=== PATIENT | female | born 1970 | race Caucasian/White ===

== ENCOUNTER 2016-04-16 14:07 | Inpatient (IN) | payer BC ==
--- NOTE | 2016-04-16 14:35 | EDPHY ---
H & P Stated Complaint: sent from [facility] pericardial effusion Time Seen by Provider: 04/16/16 14:11 HPI/ROS: CHIEF COMPLAINT: Pericardial effusion HISTORY OF PRESENT ILLNESS: The patient presents to the emergency department from the [facility] office after she was diagnosed with a fairly significant recurrent pericardial effusion. The patient does have a history of a prior pericardial effusion requiring pericardiocentesis several years ago. The patient reportedly has been having a variety of neurologic symptoms over the past several months. The symptoms includes thirst speech, falling, paresthesias. The patient reports intermittent swelling of her face and mouth. The patient reportedly has been under the care of a number of providers for evaluation of the symptoms. She is having some hot and cold sensitivities. The patient does have a history of prior thyroidectomy. The patient has reportedly been off of her levothyroxine for past 4-5 months. She reportedly had an abdominal ultrasound within the past month a which demonstrated only a mild effusion by her report. The patient does report moderate dyspnea on exertion. By report to me from Dr. Abreu, she did have evidence of pre tamponade physiology noted on her echocardiogram today. REVIEW OF SYSTEMS: A comprehensive 10 point review of systems is otherwise negative aside from elements mentioned in the history of present illness. Source: Patient Exam Limitations: No limitations - Personal History LMP (Females 10-55): Unknown Current Tetanus/Diphtheria Vaccine: Unsure Current Tetanus Diphtheria and Acellular Pertussis (TDAP): Unsure Tetanus Vaccine Date: < 10 years - Medical/Surgical History Hx Asthma: No Hx Chronic Respiratory Disease: No Hx Diabetes: No Hx Cardiac Disease: Yes Hx Renal Disease: No Hx Cirrhosis: No Hx Alcoholism: No Hx HIV/AIDS: No Hx Splenectomy or Spleen Trauma: No Other PMH: pt asks to plz see [facility] records - Social History Smoking Status: Never smoked - Physical Exam Exam: General Appearance: Alert, no distress Eyes: Pupils equal and round no pallor or injection ENT, Mouth: Mucous membranes moist Respiratory: There are no retractions, lungs are clear to auscultation Cardiovascular: Regular rate and rhythm Gastrointestinal: Abdomen is soft and nontender, no masses, bowel sounds normal Neurological: A&O, normal motor function, normal sensory exam, normal cranial nerves Skin: Warm and dry, no rashes Musculoskeletal: Neck is supple nontender Extremities: symmetrical, full range of motion Constitutional: Initial Vital Signs Temperature (C) 36.6 C 04/16/16 14:19 Heart Rate 64 04/16/16 14:19 Respiratory Rate 16 04/16/16 14:19 Blood Pressure 156/105 H 04/16/16 14:19 O2 Sat (%) 95 04/16/16 14:19 O2 Delivery Mode Room Air Allergies/Adverse Reactions: gentamicin [Gentamicin] Allergy (Intermediate, Verified 07/24/12 10:34) Rash kanamycin [Kanamycin] Allergy (Intermediate, Verified 07/24/12 10:34) tobramycin Allergy (Intermediate, Verified 07/24/12 10:34) petrolatum,white [From Petroleum Jelly] Allergy (Verified 07/24/12 10:34) bandaids Allergy (Uncoded 07/24/12 10:34) Rash Home Medications: Medication Instructions Recorded Cyanocobalamin [Vitamin B12 5,000 mcg IM TUTH 07/09/12 1000MCG/ML (RX)] Herbals/Supplements -Info Only 1 each PO AD 07/09/12 Progesterone Sr(Compounded) 150 mg PO HS 07/09/12 Thyroid,Pork [[place] Thyroid] 90 mg PO DAILY 07/09/12 Ubidecarenone [Coenzyme Q10] 100 mg PO BID 07/09/12 Cholecalciferol Vit D3 [Vitamin D3 5,000 units PO DAILY 07/24/12 1000 units (OTC)] Pharmacy Completed 07/24/12 07/24/12 Medical Decision Making - Diagnostics EKG Interpretation: EKG: Complete interpretation has been separately recorded in the [employer] archive. Summary impression: Sinus rhythm, low voltage Procedures: Procedure: Limited transthoracic echocardiogram. A limited transthoracic echocardiogram was performed and interpreted by myself for pericardial effusion. Ultrasound imaging demonstrates a large pericardial effusion with evidence of right ventricular collapse. Normal cardiac activity. Impression large pericardial effusion with ultrasonic evidence of tamponade. ED Course/Re-evaluation: The patient presents to the ED with a large pericardial effusion, electrocardiographic and echocardiographic evidence of tamponade. The patient has no clinical evidence of tamponade with normal heart rate and blood pressure noted in the ED. I do not appreciate significant JVD. The patient was placed on a monitoring and evaluation advisor. Her case was reviewed with Dr. Nathaniel Arnold from Cardiology who is making arrangements to take the patient to the union laborer shortly. Consultation was made with Dr. Sharla Chris from the hospitalist service. The patient is taken from the ER to the cardiac catheterization lab at 3:45 p.m. for pericardiocentesis Differential Diagnosis: Differential diagnosis considered includes pericardial effusion, pericardial tamponade, critical anemia, connective tissue disorder, myocardial infarction - Data Points Laboratory Results: Laboratory Results 04/16/16 14:25 04/16/16 14:25 04/16/16 04/16/16 04/16/16 14:25 14:25 14:25 WBC 3.87 10^3/uL 10^3/uL (3.80-9.50) RBC 3.91 10^6/uL L 10^6/uL (4.18-5.33) Hgb 12.5 g/dL L g/dL (12.6-16.3) Hct 37.6 % L % (38.0-47.0) MCV 96.2 fL fL (81.5-99.8) MCH 32.0 pg pg (27.9-34.1) MCHC 33.2 g/dL g/dL (32.4-36.7) RDW 14.1 % % (11.5-15.2) Plt Count 188 10^3/uL 10^3/uL (150-400) MPV 10.3 fL fL (8.7-11.7) Neut % (Auto) 63.2 % % (39.3-74.2) Lymph % (Auto) 29.7 % % (15.0-45.0) Mitchell % (Auto) 5.2 % % (4.5-13.0) Eos % (Auto) 0.8 % % (0.6-7.6) Baso % (Auto) 0.8 % % (0.3-1.7) Nucleat RBC Rel Count 0.0 % % (0.0-0.2) Absolute Neuts (auto) 2.45 10^3/uL 10^3/uL (1.70-6.50) Absolute Lymphs (auto) 1.15 10^3/uL 10^3/uL (1.00-3.00) Absolute Monos (auto) 0.20 10^3/uL L 10^3/uL (0.30-0.80) Absolute Eos (auto) 0.03 10^3/uL 10^3/uL (0.03-0.40) Absolute Basos (auto) 0.03 10^3/uL 10^3/uL (0.02-0.10) Absolute Nucleated RBC 0.00 10^3/uL 10^3/uL (0-0.01) Immature Gran % 0.3 % % (0.0-1.1) Immature Gran # 0.01 10^3/uL 10^3/uL (0.00-0.10) PT 15.1 SEC H SEC (12.0-15.0) INR 1.19 H (0.83-1.16) APTT 36.5 SEC SEC (23.0-38.0) Sodium 139 mEq/L mEq/L (134-144) Potassium 3.6 mEq/L mEq/L (3.5-5.2) Chloride 101 mEq/L mEq/L (97-110) Carbon Dioxide 28 mEq/l mEq/l (22-31) Anion Gap 10 mEq/L mEq/L (8-16) BUN 16 mg/dL mg/dL (7-23) Creatinine 1.2 mg/dL H mg/dL (0.6-1.0) Estimated GFR 48 Glucose 78 mg/dL mg/dL (70-100) Calcium 9.5 mg/dL mg/dL (8.5-10.4) Departure - Departure Disposition: [facility] Acute Clinical Impression: Pericardial effusion, Cardiac tamponade Condition: Fair
[2016-04-16 14:37] LABS: % IMMATURE GRANULYOCYTES 0.3 % (0.0-1.1); ABSOLUTE IMMATURE GRANULOCYTES 0.01 10^3/uL (0.00-0.10); ADD DIFF? NO; ADD MORPH? NO; ADD SCAN? NO; ATYPICAL LYMPHOCYTE FLAG 10 (0-99); FRAGMENT RBC FLAG 0 (0-99); HEMATOCRIT 37.6 % (38.0-47.0); HEMOGLOBIN 12.5 g/dL (12.6-16.3); LEFT SHIFT FLG 0 (0-99); LIPEMIA HEMOLYSIS FLAG 80 (0-99); MEAN CELL HEMOGLOBIN CONCENTR. 33.2 g/dL (32.4-36.7); MEAN CELL VOLUME 96.2 fL (81.5-99.8); MEAN PLATELET VOLUME 10.3 fL (8.7-11.7); PLATELET CLUMPS FLAG 0 (0-99); PLATELET COUNT 188 10^3/uL (150-400); RED BLOOD CELL COUNT 3.91 10^6/uL (4.18-5.33); RED CELL DISTRIBUTION WIDTH 14.1 % (11.5-15.2)
--- NOTE | 2016-04-16 14:38 | CPEKG ---
Heart Rate: 68 RR Interval: 882 QRSD Interval: 88 QT Interval: 360 QTC Interval: 383 QRS [place]: 30 T Wave [place]: 79 EKG Severity - ABNORMAL ECG - EKG Impression: SINUS RHYTHM EKG Impression: LOW VOLTAGE THROUGHOUT Electronically Signed By: Brian Dimas 16-Apr-2016 16:30:44
[2016-04-16 14:45] LABS: APTT 36.5 SEC (23.0-38.0); INR 1.19 (0.83-1.16); PROTIME(PATIENT) 15.1 SEC (12.0-15.0)
[2016-04-16 14:49] LABS: ANION GAP 10 mEq/L (8-16); CALCIUM 9.5 mg/dL (8.5-10.4); CARBON DIOXIDE 28 mEq/l (22-31); CHLORIDE 101 mEq/L (97-110); CREATININE 1.2 mg/dL (0.6-1.0); GLOMERULAR FILTRATION RATE 48; GLUCOSE 78 mg/dL (70-100); POTASSIUM 3.6 mEq/L (3.5-5.2); SODIUM 139 mEq/L (134-144)
[2016-04-16] MEDS ORDERED: ONDANSETRON DISINTEGRATING 4 MG TAB PO PRN (15:12)
[2016-04-16] MEDS ORDERED: ONDANSETRON 4 MG/2 ML VIAL IVP PRN (15:12)
[2016-04-16] MEDS ORDERED: ACETAMINOPHEN 325 MG TAB PO PRN (15:12)
[2016-04-16] MEDS ORDERED: fentaNYL 100 MCG/2 ML INJ ONE ×2 (15:23→16:05)
[2016-04-16] MEDS ORDERED: MIDAZOLAM 2 MG/2 ML VIAL ONE ×2 (15:23→16:05)
[2016-04-16] MEDS ORDERED: LIDOCAINE 1% 30 ML SDV ONE (15:23)
[2016-04-16] MEDS ORDERED: ETOMIDATE 40 MG/20 ML INJ ONE (16:17)
--- NOTE | 2016-04-16 16:44 | PDCTREPORT ---
Cardiothoracic Procedure Rpt Cardiothoracic Procedure Report: PROCEDURE: Pericardiocentesis DATE OF PROCEDURE: 04/16/2016 COMPLICATIONS: None. FIELD MANAGER: Nathaniel Arnold MD INDICATION AND APPROPRIATE USE CRITERIA: Marianne Jiménez has a recurrent pericardial effusion with pre tamponade physiology on echocardiogram performed earlier today. PROCEDURE IN DETAIL: After informed consent was obtained and n.p.o. status was confirmed, the region of the subxiphoid area was cleaned, prepped and draped in a sterile fashion. Ultrasound and fluoroscopic guidance was used to determine the most appropriate angle for the pericardiocentesis needle as well as depth of the pericardial effusion in that plane. Approximately 20 mL of 1% lidocaine was utilized for local anesthesia. Pericardiocentesis needle was then advanced under direct fluoroscopic guidance. Agitated saline was used to inject demonstrating access of the pericardial space. A J wire was then advanced under fluoroscopic guidance into the pericardial sac. The dilator was advanced over the wire after the needle was removed and exchanged for a pericardiocentesis drain. Through the catheter we were able to aspirate ~550 mL of straw-colored fluid, which will be sent to the laboratory for analysis. We were able to see under echocardiographic guidance that we did tap the pericardial space to dry with the use of that pericardial drain. The catheter was sutured into place with 0 silk and sterile dressing applied. A Andrea-Torres drain was attached to the end of the pericardiocentesis catheter and the catheter will remain in place overnight. The patient returned to the catheterization laboratory floor in good and stable condition. A limited echocardiogram will be performed in the morning to prove that we have no reaccumulation of fluid or blood in the pericardial space. FINAL IMPRESSION: Successful urgent pericardiocentesis without immediate complication. Patient Problems: Problems Problem Status Onset Cardiac tamponade Acute Pericardial effusion Acute Thyroid nodule Active
--- NOTE | 2016-04-16 17:23 | GHP ---
DATE OF ADMISSION: 04/16/2016 CHIEF COMPLAINT: Pericardial effusion. HISTORY OF PRESENT ILLNESS: The patient is a 46-year-old female with history of pericardial effusion in 2013 requiring pericardiocentesis and multiple other medical conditions including anemia, celiac disease, hyperlipidemia, Filiberto' s thyroiditis, Raynaud's. The patient presented to cardiology clinic today with complaints of increased shortness of breath. This has been progressive over the last couple of months. This usually occurs with activity especially if she was to run quickly to her car. She has much difficulty now with climbing stairs. She denies any chest pain. She denies dizziness, lightheadedness. No palpitations. No lower extremity edema. She endorses slurred speech intermittently for the past few months, which is associated with intermittent facial swelling. She states that she is being evaluated by her primary physician. She also reports 4 falls since [place]. The first was likely related to slipping on ice. The other one she says she just buckled. She denies prodromal symptoms but cannot be certain that she did not feel short of breath prior to. She denies fevers, chills, or sweats. No cough. No joint swelling or pain. No abdominal pain. No nausea, vomiting, diarrhea. No dysuria. Per review of [facility]'s records, echocardiogram dated today showed moderate to large pericardial effusion with evidence of pre tamponade physiology. The effusion is concentric. REVIEW OF SYSTEMS: I completed a 10-point review of systems. PAST MEDICAL HISTORY: I have reviewed her medical history in [place], as well as [facility]. 1. Idiopathic pericardial effusion in October 2012 status post pericardiocentesis in 2013. 2. Raynaud's. 3. Celiac disease. 4. Hyperlipidemia. 5. IBS. 6. Constipation. 7. Osteoporosis. 8. Papillary thyroid cancer. 9. Lyme Western Blot positive. 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 Hypothyroidism 12. MTHFR clotting disorder PAST SURGICAL HISTORY: 1. Pericardiocentesis. 2. Appendectomy. 3. Thyroidectomy in 2012. 4. Tonsillectomy in 2012. FAMILY HISTORY: Mother with osteoporosis, hypertension. Father with multiple heart issues. 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 No alcohol, tobacco, or illicit's. HOME MEDICATIONS: 1. Cytomel 5mg BID 2. Levothyroxine 75mcg ALLERGIES: 1. Gentamicin. 2. Kanamycin. 3. Tobramycin. 4. Petroleum white jelly. 5. Band-Aids. PHYSICAL EXAMINATION: VITAL SIGNS: Temperature 37.1, blood pressure 129/82, heart rate 60s, respirations 14, 99% on room air. GENERAL: HEENT: PERRLA. EOMI. Oropharynx clear. CV: Regular mildly distant heart sounds. Mild JVD elevation. LUNGS: Clear to auscultation bilaterally. ABDOMEN: Soft, nontender, nondistended. Positive bowel sounds. : No Saavedra. No suprapubic tenderness. MUSCULOSKELETAL: 5/5 upper lower extremity strength. No joint synovitis or swelling. SKIN: Warm, dry. NEURO: 2 through 12 intact. PSYCH: Alert and oriented x3. LABORATORY DATA: WBC is 3, hemoglobin 12, hematocrit 37, platelets 188, INR is 1.1, PT is 15, PTT is 35. Sodium 139, potassium 3.6, chloride 101, carbon dioxide 28, BUN 16, creatinine is 1.2, baseline 1. EKG personally reviewed by me. Normal sinus rhythm. Low voltage throughout. ASSESSMENT AND PLAN: 1. Recurrent idiopathic pleural effusion: patient has been symptomatic for several months. She was evaluated at [facility] today with an echocardiogram demonstrating moderate to large effusion with pre tamponade physiology. Patient will be taken to [facility] by Dr. Arnold to undergo pericardiocentesis. She will be observed in the PCU post procedure. Very significant hypothyroidism: TSH 127, Free T4 0.07, T3 1.57 (01/31), which may be contributing. Repeating these studies. May need to consult Endocrinology. 2. Celiac disease, stable. 3. Hyperlipidemia, not on medications. 4. Irritable bowel syndrome. Continue home medications. 5. Osteoporosis. Continue vitamin D supplementation. 6. History of papillary thyroid cancer status post thyroidectomy. Cont LT4, Cytomel. LT4. Repeat TSH, T3/T4. 7. Mild acute kidney injury. This might be secondary to tamponade. Physiology will hydrate gently after procedure. 8. Diet n.p.o. now regular after procedure. 9. Deep venous thrombosis prophylaxis. SCDs given procedure. DISPOSITION: The patient warrants observation and admission in the PCU after pericardiocentesis. /[id number]/MODL MTDD
--- NOTE | 2016-04-16 17:58 | GHP ---
DATE OF ADMISSION: 04/16/2016 HISTORY OF PRESENT ILLNESS: The patient is a 46-year-old lady with a significant past medical histo ry. She actually has a history of a prior thyroid cancer, status post thyroidectomy under the care of the ENT surgeon, Dr. Glass. She presented to our office after an evaluation by her PLATE MAKER ZINC, Oscar Gross, who identified a pericardial effusion of her heart on a routine ultrasound that was bein g performed for DIET TECHNICIAN REGISTERED symptoms. She was seen by Dr. Leonel Abreu, my partner, on April 04, and a full workup, including a nuclear stress test and echocardiogram were ordered. Today, the echo was completed, and the patient was found to have pre-tamponade physiology, with a very large pericardial effusion. I was asked to see the patient for pericardiocentesis. At the time of my evaluation, the patient complains of symptoms of intermittent slurred speech. It occurs approximately once a week and can last from an hour to all day. It often disappears on its o wn. It sounds as if she is drunk, but she certainly has not been drinking alcohol. Her voice seems to change during these times, and she has also noticed swelling and distortion of her face. Her li ps and mouth can actually be swollen. She has noticed more of the symptoms on the right side, and o ther people have seen this swelling and commented on it. Her lip and mouth swelling are more notice able, per the patient; however, her boyfriend and son have noticed and can tell that something is wr rome with the swelling, which started around the holidays. She has cold intolerance and is cold 24 h ours a day, essentially all the time. Everyone else around her can be very hot or warm, but she sti ll complains of feeling cold. She has not had fever, chills, nausea, or vomiting. She does not hav e a history of hypertension, diabetes, smoking, gout, or obesity. She does have an elevated cholest ling level. FAMILY HISTORY: Pertinent for a history of premature coronary disease. PAST MEDICAL HISTORY: Significant for anemia, arthritis, celiac disease, cytomegalovirus, EBV infec tion, Filiberto's thyroiditis, thyroid neoplasm, hypothyroidism, irritable bowel syndrome, irregular menses, Lyme disease, MTHFR clotting disorder. The thyroid cancer was characterized as a papillary thyroid cancer. She has also had a prior pericardial effusion requiring pericardiocentesis. PAST SURGICAL HISTORY: Significant for appendectomy in 2004, breast biopsy of the right breast in 2 016, pericardiocentesis in 2012, tonsillectomy as a child, and thyroidectomy. CURRENT MEDICATIONS: Include boric acid, calcium, Cytomel, DHEA 5 mg, fludrocortisone 0.1 mg once d aily, levothyroxine 112 mcg daily, probiotic, and milk thistle. ALLERGIES: She is not known to be allergic to any medications but does have an allergy to adhesive tape. HABITS: She has never smoked. Does not drink alcohol or use illicit drugs. REVIEW OF SYSTEMS: Ten-point review of systems is negative, except as otherwise outlined in the HPI . PHYSICAL EXAMINATION: GENERAL: She is frail and pale, and a small lady. VITAL SIGNS: Blood press ure of 115/70. Pulse is 70, regular. Respirations 16, unlabored. Oxygen saturation 96%. NECK: No JVD or carotid bruit. HEART: Normal S1 and S2, with distant heart sounds. LUNGS: Clear. Somewh at unusual for a patient with her slender body habitus. ABDOMEN: Benign. EXTREMITIES: Warm, dry, and well perfused, without significant peripheral edema. Echocardiographic images reveal a large pericardial effusion with pre-tamponade physiology. IMPRESSION/PLAN: Recurrent pericardial effusion in a patient with prior thyroid cancer, now with ev idence of pre-tamponade physiology as evidenced by the mitral inflow pattern and RV diastolic collap se. The patient would benefit from an urgent pericardiocentesis to potentially help with her episod es of near fainting, as well as her breathing difficulties and fatigue. I suspect that some of her low blood pressures may be related to her hypothyroidism. The second issue is that the patient is s ignificantly hypothyroid on her current medical regimen of 112 mcg, which may in part be responsible for her pericardial effusion and, in essence, myxedema. It may be prudent for us to get the endocr inologists involved and to consider intravenous thyroid to help improve her hypothyroid state. Copy requested to: Primary Care Physician /[id number]/MODL
[2016-04-16] MEDS: HYDROCODONE/APAP 5/325 TAB PO PRN (23:20)
[2016-04-17] MEDS: HYDROCODONE/APAP 5/325 TAB PO PRN ×2 (03:51→19:35)
[2016-04-17 04:23] LABS: HEMATOCRIT 39.8 % (38.0-47.0); HEMOGLOBIN 13.2 g/dL (12.6-16.3); MEAN CELL HEMOGLOBIN 32.4 pg (27.9-34.1); MEAN CELL HEMOGLOBIN CONCENTR. 33.2 g/dL (32.4-36.7); MEAN CELL VOLUME 97.8 fL (81.5-99.8); RED BLOOD CELL COUNT 4.07 10^6/uL (4.18-5.33); RED CELL DISTRIBUTION WIDTH 13.8 % (11.5-15.2)
[2016-04-17 04:34] LABS: ANION GAP 10 mEq/L (8-16); CALCIUM 8.6 mg/dL (8.5-10.4); CARBON DIOXIDE 24 mEq/l (22-31); CHLORIDE 102 mEq/L (97-110); CREATININE 1.2 mg/dL (0.6-1.0); GLOMERULAR FILTRATION RATE 48; GLUCOSE 90 mg/dL (70-100); POTASSIUM 3.5 mEq/L (3.5-5.2); SODIUM 136 mEq/L (134-144)
[2016-04-17] MEDS ORDERED: LEVOTHYROXINE 75 MCG TAB PO SCH (06:00)
[2016-04-17] MEDS: LEVOTHYROXINE 75 MCG TAB PO SCH (06:41)
[2016-04-17] MEDS: LIOTHYRONINE SODIUM 5 MCG TAB PO SCH ×2 (08:45→22:03)
[2016-04-17] MEDS ORDERED: LEVOTHYROXINE SODIUM 100 MCG PO SCH (09:00)
--- NOTE | 2016-04-17 09:27 | CPEKG ---
Heart Rate: 60 RR Interval: 1000 QRSD Interval: 88 QT Interval: 400 QTC Interval: 400 QRS [place]: 76 T Wave [place]: 113 EKG Severity - ABNORMAL ECG - EKG Impression: ACCELERATED JUNCTIONAL ESCAPE RHYTHM EKG Impression: BORDERLINE R WAVE PROGRESSION, ANTERIOR LEADS EKG Impression: NONSPECIFIC T ABNORMALITIES, ANT-LAT LEADS Electronically Signed By: Brian Dimas 17-Apr-2016 22:28:45
--- NOTE | 2016-04-17 11:39 | HOSPPROG ---
Hospitalist Progress Note Assessment/Plan: 46 y/o female new to my care presenting with #recurring idiopathic pericardial effusion s/p drainage #reported dysequilibrium/slurred speech/falls #untreated hypothyroidism in the setting of prior thyroidectomy (pt has been off thyroid replacement for sometime) #H/O hyperlipidemia #Celiac disease #IBS #TANIA #MTHFR clotting disorder plan -cont post procedure care per cards with pericardial fluid analysis -MRI brain to further eval her neuro symptoms and eval for CVA given her known clotting disorder -continue thyroid replacement Subjective: improved sob. denies new numbness or weakness Objective: Vital Signs Temp Pulse Resp BP Pulse Ox 36.4 C 65 20 104/81 H 96 04/17/16 08:42 04/17/16 08:42 04/17/16 08:42 04/17/16 08:42 04/17/16 08:42 Microbiology 04/16/16 16:46 Gram Stain - Final Pericardial Fluid - Aspirate Laboratory Results 04/17/16 03:48 04/17/16 03:48 04/16/16 04/17/16 04/18/16 05:59 05:59 05:59 Intake Total 400 Output Total 1965 Balance -1565 PT 15.1 SEC (12.0-15.0) H 04/16/16 14:25 INR 1.19 (0.83-1.16) H 04/16/16 14:25 - Physical Exam Constitutional: no apparent distress, appears nourished, not in pain Ears, Nose, Mouth, Throat: moist mucous membranes, hearing normal, ears appear normal, no oral mucosal ulcers Cardiovascular: regular rate and rhythym, No JVD, No tachycardia, No edema Respiratory: no respiratory distress, no rales or rhonchi, clear to auscultation , No inspiratory crackles Gastrointestinal: normoactive bowel sounds, soft, non-tender abdomen, no palpable masses, No guarding, No rebound Genitourinary: no bladder fullness, no bladder tenderness, no renal bruits Neurologic: AAOx3, sensation intact bilaterally ICD10 Worksheet Patient Problems: Problems Problem Status Onset Thyroid nodule Active Pericardial effusion Acute Cardiac tamponade Acute
--- NOTE | 2016-04-17 13:52 | PDCARPN ---
Cardiology Progress Note Chief Complaint: Lip/face swelling, difficulty speaking Assessment/Plan: Assessment/Plan: 1. Recurrent pericardial effusion s/p pericardiocentesis yesterday with 550 mL straw-colored fluid. Will plan on removing catheter tomorrow to aspirate remaining fluid. Her first pericardial effusion occurred in 2012. Both of these appear to be temporally related to severe hypothyroidism (TSH as high as 119 in the months prior to her first effusion -- it was measured at 142 yesterday). She has not been taking Synthroid the past few months). I am concerned her recurrent pericardial effusion is related severe hyperthyroidism. 2. Slurred, difficult speech. We are evaluating with an MRI of her brain given her clotting disorder. I believe this also may be related to her severe hypothyroidism. 3. Untreated hypothyroidism in the setting of prior thyroidectomy (pt has been off thyroid replacement for sometime. I spent 15 minutes discussing the imperative nature of taking her Synthroid on a regular basis. I reiterated this to her family). I would like an endocrinology consultation to discuss thyroid replacement therapy. 4. MTHFR clotting disorder. Subjective: I am feeling better today and am less short of breath. Still have some lip/face swelling. Reviewed/Discussed With: family, hospitalist, multidisciplinary team Time Spent With Patient: 30 minutes discussing care with the patient Objective: Vital Signs (8 Hrs) Temp Pulse Resp BP Pulse Ox 04/17/16 12:01 36.5 C 61 14 125/78 H 98 04/17/16 08:42 36.4 C 65 20 104/81 H 96 Intake/Output (24 Hrs) 04/16/16 04/17/16 04/18/16 05:59 05:59 05:59 Intake Total 400 480 Output Total 1965 250 Balance -1565 230 Intake: Oral (ml) 400 480 Output: Urine (ml) 1300 250 Toilet 1300 250 Pericardiocentesis 550 Wound Drainage (ml) 115 Pericardial 115 Other: Weight 48.5 kg Intake Quantity Yes Sufficient Result Diagrams: 04/17/16 03:48 04/17/16 03:48 - Physical Exam Constitutional: WDWN, no apparent distress Eyes: other (periorbital edema) Ears, Nose, Mouth, Throat: moist mucous membranes Cardiovascular: regular rate and rhythm, no murmurs, no rubs, no gallops Peripheral Pulses: 2+: carotid (R), carotid (L), femoral (R), femoral (L), dorsalis-pedis (R), dorsalis-pedis (L) Respiratory: clear to auscultate bilat, no crackles, no wheezes Gastrointestinal: normoactive bowel sounds Skin: warm Neurologic: AAOx3, CN II-XII grossly intact Psychiatric: interactive, not anxious ICD10 Worksheet Patient Problems: Problems Problem Status Onset Cardiac tamponade Acute Pericardial effusion Acute Thyroid nodule Active
--- NOTE | 2016-04-17 16:51 | ECHO ---
[id number] + + [address] : : [place] [address] : : [phone] + + Adult Echocardiographic Report + + :Name: ANNEMARIE BROCKudy Date: 04/16/2016 03:55 PM : : Hospital Admission Number: [id number] Tika cation: dentures lab technician: :: 1970 Gender: Female : :Age: 46 yrs Race: WH,White : :Reason For Study: Pericardial effuson : + + Conclusion Echocardiography guided pericardiocentesis. The patient has a large pericardial effusion with pretamponade physiology. Agitated saline was injected to prove access to the pericardial space. 550 ml of fluid was removed from the pericardial space with minimal remaining fluis post tap. Final Reading Physician: Simba Deleon signed on 04/17/2016 04:49 PM Ordering Physician: Sharla Chris Performed By: Nathaniel Arnold MD
--- NOTE | 2016-04-17 16:53 | ECHO ---
[id number] + + [address] : : [place] [address] : : [phone] + + Adult Echocardiographic Report + ------+ :Name: ANNEMARIE BROCK KOFIcosmomary Date: 04/17/2016 09:00 AM : : Hospital Admission Number: [id number] : :: 1970 Gender: Female Height: 62 in : :Age: 46 yrs Race: WH,White Weight: 11 5 lb : :Reason For Study: Eval LV Fx : : BSA: 1.5 m eters2: :History: Post pericardiocentesis : + ------+ Pericardium/Pleural There is no pericardial effusion. Post pericardial tap approximately 100cc of fluid was drained. Conclusion This is a limited echo to evaluate for pericardial fluid post pericardiocentisis. There is no pericardial effusion. Post pericardial tap approximately 100cc of fluid was drained. No evidence of fluid reaccumulation. Final Reading Physician: Simba Deleon signed on 04/17/2016 04:51 PM Ordering Physician: Nathaniel Arnold Performed By: Rd Shahid, CS
[2016-04-18 03:58] VITALS: O2SAT 100
[2016-04-18] MEDS: LEVOTHYROXINE 75 MCG TAB PO SCH (06:20)
[2016-04-18 08:04] VITALS: BP 100/64; PULSE 63; RESP 12; TEMP 98.1
[2016-04-18] MEDS: LIOTHYRONINE SODIUM 5 MCG TAB PO SCH (09:28)
--- NOTE | 2016-04-18 10:16 | PDCTREPORT ---
Cardiothoracic Procedure Rpt Cardiothoracic Procedure Report: PROCEDURE: Pericardiocentesis drain removal without IV conscious sedation. DATE OF PROCEDURE: 04/18/2016 COMPLICATIONS: None. INTERNAL MEDICINE VETERINARY TECHNICIAN: Nathaniel Arnold MD INDICATION FOR REMOVAL: The patient has not had a significant reaccumulation of pericardial fluid. PROCEDURE IN DETAIL: After informed consent was obtained, the region of the pericardiocentesis drain was cleaned, prepped and draped in a sterile fashion. A suture removal kit was used to cut the sutures holding the device into place and all suture materials were removed. The drain was then pulled without incident and a sterile dressing was applied. FINAL IMPRESSION: Successful pericardiocentesis drain removal without immediate complication. A limited echocardiogram will be performed within the next 7-10 days to prove there is no reaccumulation of fluid. Patient Problems: Problems Problem Status Onset Cardiac tamponade Acute Pericardial effusion Acute Thyroid nodule Active
--- NOTE | 2016-04-18 13:41 | GDS ---
DISCHARGE DIAGNOSES: 1. Recurrent pericardial effusion, most likely due to untreated hypothyroidism. 2. History of thyroid cancer, status post total thyroidectomy and untreated hypothyroidism due to p atient's noncompliance. 3. History of dyslipidemia. 4. History of celiac disease. 5. History of irritable bowel syndrome. 6. Acute kidney injury. 7. MTHFR clotting disorder. CONSULTANTS: Dr. Nathaniel Arnold, cardiology. HOSPITAL COURSE AND STAY BY PROBLEM: 1. Recurrent pericardial effusion: The patient was directly admitted to the hospital after she was found to have a large pericardial effusion with pre-tamponade physiology on echo. The patient was taken to the tree tapping laborer, where she had pericardiocentesis. It was thought that the most likely explan ation for this effusion is her untreated hypothyroidism. At the time of this dictation, cytology is still pending. 2. Untreated hypothyroidism: The patient states that she had been off her thyroid medicine for paulo e time since she lost her insurance. The patient has had multiple symptoms consistent with hypothyr oidism, including constipation, some intermittent balance problems and general fogginess. The impor tance of taking thyroid replacement was discussed at length with the patient, who understands the ri sks of associated with untreated hypothyroidism and myxedema and coma. I did discuss her care with the on-call combine operator, Dr. Vick Jules, who has cared for the patient on an outpatient basis. He thought it was reasonable to continue her current dosing of levo thyroxine at 75 mcg daily and 5 mcg of Cytomel twice daily given the fact that she is not clearly my xedematous at this time. The patient plans to follow up with Endocrinology on an outpatient basis. A thyroglobulin tumor marker was ordered, which is currently pending and will need to be followed u p. PHYSICAL EXAM: VITAL SIGNS: On the day of discharge, blood pressure 100/64, pulse 63, respiratory rate 12, O2 sat 100% on 3 L, temperature afebrile. GENERAL: No acute distress. HEART: S1, S2. N o muffled heart sounds. No JVD. No lower extremity edema. PULMONARY: Lungs are clear. No wheeze s, rales, or rhonchi. SKIN: No obvious myxedematous edema. DISCHARGE MEDICATIONS: Please refer to the discharge medication reconciliation in [facility]. Below is a preliminary list. 1. Synthroid 75 mcg daily. 2. Cytomel 5 mcg twice daily. DISCHARGE INSTRUCTIONS: The patient will be discharged from the hospital, where she should follow u p with Endocrinology next week. She should also follow up with her primary care provider regarding her pending pericardial fluid cytology as well as the pending thyroglobulin tumor marker. The patie nt does also plan to follow up with her thyroid surgeon given the fact that she had a slightly abnor mal neck ultrasound in the past. One thing to note was the patient did report some intermittent problems with falling and balance pro blems. I did order an MRI during this hospital stay. However, this was not done since the patient did have metallic objects that she was unwilling to remove. I think it would be reasonable to have an outpatient MRI of the brain at some point given her history of MTHFR clotting disorder to further evaluate for signs of CVA or metastatic disease given her history of thyroid cancer. /[id number]/MODL
[2016-04-19 14:36] LABS: THYROGLOBULIN INTERPRETATION See Comments; THYROGLOBULIN TUMOR MARKER <0.1 ng/mL
== END 2016-04-18 14:35 | disposition home or self-care (01) | DRG 315 ==
LOC: F2W 17:10 → OBSVTOIN 04-17 14:38
PROVIDERS: ADMIT Internal Medicine; ATTEND Family Medicine
PROC: 0W9D30Z Drainage of Pericardial Cavity with Drainage Device, Percutaneous Approach (ICD-10-PCS; principal; 2016-04-16)
PROC: 0WPDX0Z Removal of Drainage Device from Pericardial Cavity, External Approach (ICD-10-PCS; 2016-04-18)
DX: I31.3 Pericardial effusion (noninflammatory) (principal); E89.0 Postprocedural hypothyroidism; N17.9 Acute kidney failure, unspecified; D68.9 Coagulation defect, unspecified; Z91.120 Patient's intentional underdosing of medication regimen due to financial hardship; E78.5 Hyperlipidemia, unspecified; K90.0 Celiac disease; K58.9 Irritable bowel syndrome, unspecified; D64.9 Anemia, unspecified; I73.00 Raynaud's syndrome without gangrene; Z82.49 Family history of ischemic heart disease and other diseases of the circulatory system; Z86.19 Personal history of other infectious and parasitic diseases; Z85.850 Personal history of malignant neoplasm of thyroid
CPT/HCPCS: 84432-90; 84481-90; G0378; J1644; J2250; J2405; J3010

== ENCOUNTER → 2016-05-29 | Outpatient (CLI) | payer BC ==
[~2016-05-29] MED LIST: GADOBUTROL 10 ML VIAL IVP ONE
== END ==
LOC: FIMAGING 10:43
PROVIDERS: ATTEND Advanced Practice Midwife
DX: I31.3 Pericardial effusion (noninflammatory) (principal); E04.1 Nontoxic single thyroid nodule; N93.9 Abnormal uterine and vaginal bleeding, unspecified
CPT/HCPCS: A9585

== ENCOUNTER → 2016-06-11 | Outpatient (CLI) | payer BC ==
[~2016-06-11] MED LIST changes: -GADOBUTROL 10 ML VIAL IVP ONE; +NA BICARBONATE 50 MEQ/50 ML VIAL ONE
== END ==
LOC: FIMAGING 09:46
PROVIDERS: ATTEND Otolaryngology
PROC: 0G9H3ZX Drainage of Right Thyroid Gland Lobe, Percutaneous Approach, Diagnostic (ICD-10-PCS; principal; 2016-06-11)
DX: C73 Malignant neoplasm of thyroid gland (principal)

== ENCOUNTER → 2016-06-23 | Outpatient (CLI) | payer BC ==
[~2016-06-23] MED LIST changes: +GADOBUTROL 10 ML VIAL IVP ONE; -NA BICARBONATE 50 MEQ/50 ML VIAL ONE
== END ==
LOC: FIMAGING 09:15
PROVIDERS: ATTEND Internal Medicine Hematology & Oncology
DX: Z12.89 Encounter for screening for malignant neoplasm of other sites (principal); R51 Headache; R26.9 Unspecified abnormalities of gait and mobility; J01.10 Acute frontal sinusitis, unspecified; Z85.850 Personal history of malignant neoplasm of thyroid
CPT/HCPCS: A9585

== ENCOUNTER → 2016-07-24 | Outpatient (CLI) | payer BC | LOC: FIMAGING 10:14 | PROVIDERS: ATTEND Internal Medicine Rheumatology | DX: M53.3 Sacrococcygeal disorders, not elsewhere classified (principal); W19.XXXA Unspecified fall, initial encounter ==

== ENCOUNTER → 2016-07-28 | Outpatient (CLI) | payer BC | LOC: FIMAGING 09:14 | PROVIDERS: ATTEND Internal Medicine Rheumatology | DX: M53.3 Sacrococcygeal disorders, not elsewhere classified (principal) ==

== ENCOUNTER 2016-10-10 14:32 | Emergency (ER) | payer BC ==
--- NOTE | 2016-10-10 15:38 | EDPHY ---
H & P Stated Complaint: FALL ON STAIRS LANDING ON LOW BACK Time Seen by Provider: 10/10/16 15:20 HPI/ROS: CHIEF COMPLAINT: Mechanical fall, low back pain, pelvic pain HISTORY OF PRESENT ILLNESS: The patient presents to the ED after a mechanical fall on stairs. The patient reportedly fell backwards landing on her lumbar spine and gluteal area. She did not strike her head or lose consciousness. She complains of moderate bilateral paraspinal pain and pain in her bilateral gluteal area. The patient is not on any anticoagulants. She denies acute numbness or weakness. She denies bowel or bladder dysfunction. The patient rates her pain as an 8/10. It is worsened with movement and ambulation. REVIEW OF SYSTEMS: A comprehensive 10 point review of systems is otherwise negative aside from elements mentioned in the history of present illness. Source: Patient Exam Limitations: No limitations - Personal History LMP (Females 10-55): IUD In Place Current Tetanus Diphtheria and Acellular Pertussis (TDAP): Yes Tetanus Vaccine Date: < 10 years - Medical/Surgical History Hx Asthma: No Hx Chronic Respiratory Disease: No Hx Diabetes: No Hx Cardiac Disease: Yes Hx Renal Disease: No Hx Cirrhosis: No Hx Alcoholism: No Hx HIV/AIDS: No Hx Splenectomy or Spleen Trauma: No Other PMH: PAPPILARY THROID CA W/ THROID ECTOMY, PERICARDIAL EFFUSION, LYME DS, CELIAC, APPY, TONSILECTOMY, SHOGRENS, RYNAUDS - Social History Smoking Status: Never smoked - Physical Exam Exam: General Appearance: Alert, no distress Head: Atraumatic Eyes: Pupils equal, round, reactive ENT, Mouth: No hemotympanum, no oral trauma Neck: Nontender, trachea midline Respiratory: No chest wall tender, subcutaneous air, lungs clear bilaterally Cardiovascular: Regular rate and rhythm Abdomen: Abdomen is soft and nontender, pelvis stable Skin: Abrasion noted to the mid lumbar spine, tenderness to palpation mid lumbar spine and bilateral lower extremity Back: No midline T/L/S pain Extremities: Nontender, full range of motion Neurological: A&Ox3, normal motor function, normal sensory exam Constitutional: Initial Vital Signs Temperature (C) 36.4 C 10/10/16 14:40 Heart Rate 97 10/10/16 14:40 Respiratory Rate 18 10/10/16 14:40 Blood Pressure 113/89 H 10/10/16 14:40 O2 Sat (%) 100 10/10/16 14:40 O2 Delivery Mode Room Air Allergies/Adverse Reactions: gentamicin [Gentamicin] Allergy (Intermediate, Verified 07/24/12 10:34) Rash kanamycin [Kanamycin] Allergy (Intermediate, Verified 07/24/12 10:34) tobramycin Allergy (Intermediate, Verified 07/24/12 10:34) petrolatum,white [From Petroleum Jelly] Allergy (Verified 07/24/12 10:34) bandaids Allergy (Uncoded 07/24/12 10:34) Rash Home Medications: Medication Instructions Recorded Herbals/Supplements -Info Only 1 each PO AD 07/09/12 LEVOTHYROXINE SODIUM [Tirosint 75 75 mcg PO DAILY #30 04/18/16 mcg] Liothyronine Sodium 5 mcg PO BID #60 tablet 04/18/16 FLUDROCORTISONE ACETATE 10/10/16 Lidocaine 5% [Lidoderm 5% Patch 1 ea TD DAILY #12 patch 10/10/16 (*)] Medical Decision Making - Diagnostics Imaging Results: Imaging Impressions Lumbar Spine X-Ray 10/10/16 15:34 Impression: Negative. No acute fracture. Pelvis x-ray: AP, images reviewed by myself and discussed with radiologist, negative for acute fracture. ED Course/Re-evaluation: The patient presents to the ED for evaluation of lumbar and gluteal pain following mechanical fall. The patient is noted to be neurologically intact. She is in no acute distress. The patient had tenderness throughout her lower paraspinal musculature. She did have a lidocaine patch applied to the area. She was taken for plain films of the back and pelvis which demonstrated no evidence of an acute fracture. The patient underwent serial examinations in the ED by myself over a 2 hour period. She remains neurologically intact. She has no red flag warnings for back pain. The patient will be discharged home with a prescription for lidocaine patch. Differential Diagnosis: Differential diagnosis considered includes lumbar compression fracture, lumbar strain, pelvic fracture, gluteal contusion - Data Points Medications Given: Lidocaine (Lidoderm 5%) 1 ea TD DAILY SRUTHI Stop: 04/09/17 08:59 Last Admin: 10/10/16 15:54 Dose: 1 ea Departure - Departure Disposition: Home, Routine, Self-Care Clinical Impression: Lumbar sprain, Gluteal pain Condition: Good Instructions: Low Back Strain (ED) Additional Instructions: 1. Take Ibuprofen or Motrin 600 mg by mouth three times a day. 2. Lidocaine patches as directed. 3. Your x-ray demonstrates no evidence of an acute fracture. Referrals: Maria Del Carmen Gross MD [Primary Care Provider] - As per Instructions Prescriptions: Lidocaine 5% [Lidoderm 5% Patch (*)] 1 ea TD DAILY #12 patch
[2016-10-10] MEDS ORDERED: LIDOCAINE 5% 1 EA PATCH TD ONE (15:52)
[2016-10-10 18:15] VITALS: BP 123/76; PULSE 78; RESP 15; TEMP 97.8; O2SAT 98
[2016-10-10] MEDS ORDERED: PATCH REMOVAL 1 EA PATCH TD SCH (21:00)
[2016-10-11] MEDS ORDERED: LIDOCAINE 5% 1 EA PATCH TD SCH (09:00)
== END 2016-10-10 18:11 | disposition home or self-care (01) ==
DX: S33.5XXA Sprain of ligaments of lumbar spine, initial encounter (principal); Z85.850 Personal history of malignant neoplasm of thyroid; W10.8XXA Fall (on) (from) other stairs and steps, initial encounter

== ENCOUNTER → 2016-10-24 | Outpatient (CLI) | payer BC | LOC: FIMAGING 11:13 | PROVIDERS: ATTEND Physician Assistant | DX: M79.1 Myalgia (principal); R53.81 Other malaise; R29.6 Repeated falls; M41.85 Other forms of scoliosis, thoracolumbar region | CPT/HCPCS: 78306; A9503 ==

== ENCOUNTER → 2016-10-30 | Outpatient (CLI) | payer BC | LOC: FIMAGING 07:31 | PROVIDERS: ATTEND Obstetrics & Gynecology Gynecology | DX: S32.19XD Other fracture of sacrum, subsequent encounter for fracture with routine healing (principal); M76.01 Gluteal tendinitis, right hip; M76.02 Gluteal tendinitis, left hip; M76.892 Other specified enthesopathies of left lower limb, excluding foot | CPT/HCPCS: A9585 ==

== ENCOUNTER 2017-07-15 21:58 | Emergency (ER) | payer BC ==
[2017-07-15] MEDS ORDERED: NS 1,000 ML IV ONE (22:05)
[2017-07-15] MEDS: LORazepam 2 MG/ML INJ IVP ONE ×2 (22:10)
[2017-07-15 22:14] LABS: PLATELET COUNT 267 10^3/uL (150-400)
[2017-07-15] MEDS ORDERED: MIDAZOLAM 2 MG/2 ML VIAL ONE (22:17)
--- NOTE | 2017-07-15 22:18 | EDPHY ---
H & P Stated Complaint: chest pain Time Seen by Provider: 07/15/17 22:04 HPI/ROS: HPI The patient presents brought in by ambulance for chest pain, coughing, shortness of breath which began just prior to presentation. She says 10 min before she called the ambulance while she was sitting down eating dinner she had acute onset of right-sided sharp chest pain which did not radiate and was constant. It then became associated with shortness of breath. She felt she had to take very deep breaths to breathe comfortably. Her symptoms were worse with coughing. Upon arrival of paramedics patient's heart rate was 160 H she had some PVCs on the monitor. She required Versed 2 mg because of hyperventilation and anxiety. She says over the last several days she has had a dry cough and rhinorrhea. She now is feeling somewhat better. She does describe periorbital paresthesias and tingling in her fingertips. REVIEW OF SYSTEMS Constitutional: No fever, no chills. Eyes: No discharge. ENT: No sore throat. Cardiovascular: Positive for chest pain, no palpitations. Respiratory: See HPI Gastrointestinal: No abdominal pain, no vomiting. Genitourinary: No hematuria. Musculoskeletal: No back pain. Skin: No rashes. Neurological: No headache. 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's disease, admitted in 2017 for pericardial effusion thought to be due to underlying thyroid disease, history of IBS, history of celiac disease, history of dyslipidemia Soc Hx: Housed here with her son and brother PHYSICAL General Appearance: Alert, no distress Eyes: Pupils equal and round no pallor or injection ENT, Mouth: Mucous membranes moist Respiratory: There are no retractions, lungs are clear to auscultation Cardiovascular: Regular rate and rhythm Chest wall: There is right-sided anterior lower rib segment tenderness to palpation Gastrointestinal: Abdomen is soft and non-tender, no masses, bowel sounds normal Neurological: A&O, moves all extremities Skin: Warm and dry, no rashes Musculoskeletal: Neck is supple non tender Extremities: symmetrical, full range of motion Psychiatric: Patient is oriented X 3, there is no agitation Source: Patient, EMS, Old records Exam Limitations: No limitations - Personal History Tetanus Vaccine Date: < 10 years - Medical/Surgical History Hx Asthma: No Hx Chronic Respiratory Disease: No Hx Diabetes: No Hx Cardiac Disease: Yes Hx Renal Disease: No Hx Cirrhosis: No Hx Alcoholism: No Hx HIV/AIDS: No Hx Splenectomy or Spleen Trauma: No Other PMH: PAPPILARY THROID CA W/ THROID ECTOMY, PERICARDIAL EFFUSION, LYME DS, CELIAC, APPY, TONSILECTOMY, SHOGRENS, RYNAUDS - Social History Smoking Status: Never smoked Constitutional: Initial Vital Signs Temperature (C) 36.9 C 07/15/17 22:04 Heart Rate 91 07/15/17 22:04 Respiratory Rate 20 07/15/17 22:04 Blood Pressure 135/84 H 07/15/17 22:04 O2 Sat (%) 95 07/15/17 22:04 O2 Delivery Mode Room Air O2 (L/minute) 2 Allergies/Adverse Reactions: gentamicin [Gentamicin] Allergy (Intermediate, Verified 07/24/12 10:34) Rash kanamycin [Kanamycin] Allergy (Intermediate, Verified 07/24/12 10:34) tobramycin Allergy (Intermediate, Verified 07/24/12 10:34) petrolatum,white [From Petroleum Jelly] Allergy (Verified 07/24/12 10:34) bandaids Allergy (Uncoded 07/24/12 10:34) Rash Home Medications: Medication Instructions Recorded Herbals/Supplements -Info Only 1 each PO AD 07/09/12 LEVOTHYROXINE SODIUM [Tirosint 75 75 mcg PO DAILY #30 04/18/16 mcg] Liothyronine Sodium 5 mcg PO BID #60 tablet 04/18/16 FLUDROCORTISONE ACETATE 10/10/16 Lidocaine 5% [Lidoderm 5% Patch] 1 ea TD DAILY #12 patch 10/10/16 Medical Decision Making - Diagnostics EKG Interpretation: EKG: Complete interpretation has been separately recorded in the [facility] archive. Summary impression: Normal sinus rhythm Imaging Results: Imaging Impressions Chest X-Ray 07/15/17 22:05 Impression: No evidence of acute cardiopulmonary abnormality. Imaging: Discussed imaging studies w/ bilingual call center representative Radiologist, I viewed and interpreted images myself Procedures: Bedside cardiac Ultrasound- performed and interpreted by me. Indication: Chest pain Findings: No pericardial effusion, normal gross ejection fraction, normal IVC Impression: No pericardial effusion Differential Diagnosis: This is a 47-year-old female with multiple medical problems including poorly controlled thyroid disease resulting in pericardial effusions in the past, pots disease, Meniere's disease, celiac disease who presents brought in by ambulance for shortness of breath and chest pain which started suddenly. Here, vital signs are unremarkable, she does appear quite anxious and seems to be hyperventilating. She was given another dose of Versed for this with improvement in her symptoms. Differential diagnosis includes recurrent pericardial effusion, tamponade, pneumothorax, pneumonia, pleural effusion, costochondritis, pericarditis. In the emergency department, I met the paramedics at the bedside to obtain their report. Patient was started on IV fluids. She was given Versed for her anxiety and hyperventilation. Her symptoms improved significantly after this. Chest x-ray and labs were checked and these were unremarkable. Her TSH was slightly low though she does say that she is taking her levothyroxine. This should be followed up by her primary care physician. Given her concern for pericardial effusion, bedside echo was performed demonstrating no effusion. She was given a dose of Toradol for ongoing pain. I suspect she is suffering from costochondritis given recent coughing and rhinorrhea. I have instructed her to take anti-inflammatories such as ibuprofen for this. She is happy with this plan. - Data Points Laboratory Results: Laboratory Results 07/15/17 22:00 07/15/17 22:00 07/15/17 07/15/17 07/15/17 23:00 22:00 22:00 WBC RBC Hgb Hct MCV MCH MCHC RDW Plt Count MPV Neut % (Auto) Lymph % (Auto) [place] % (Auto) Eos % (Auto) Baso % (Auto) Nucleat RBC Rel Count Absolute Neuts (auto) Absolute Lymphs (auto) Absolute Monos (auto) Absolute Eos (auto) Absolute Basos (auto) Absolute Nucleated RBC Immature Gran % Immature Gran # PT 13.9 SEC SEC (12.0-15.0) INR 1.05 (0.83-1.16) APTT 30.0 SEC SEC (23.0-38.0) D-Dimer < 0.27 ug/mLFEU ug/mLFEU (0.00-0.50) Sodium 144 mEq/L mEq/L (135-145) Potassium 4.3 mEq/L mEq/L (3.3-5.0) Chloride 104 mEq/L mEq/L (97-110) Carbon Dioxide 28 mEq/l mEq/l (22-31) Anion Gap 12 mEq/L mEq/L (8-16) BUN 13 mg/dL mg/dL (7-23) Creatinine 0.6 mg/dL mg/dL (0.6-1.0) Estimated GFR > 60 Glucose 87 mg/dL mg/dL (70-100) Calcium 9.1 mg/dL mg/dL (8.5-10.4) Troponin I < 0.012 ng/mL ng/mL (0.000-0.034) NT-Pro-B Natriuret Pep 81 pg/mL pg/mL (0-125) TSH 0.182 uIU/mL L uIU/mL (0.465-4.680) Urine Opiates Screen NEGATIVE (NEGATIVE) Urine Barbiturates NEGATIVE (NEGATIVE) Ur Phencyclidine Scrn NEGATIVE (NEGATIVE) Ur Amphetamine Screen NEGATIVE (NEGATIVE) U Benzodiazepines Scrn NEGATIVE (NEGATIVE) Urine Cocaine Screen NEGATIVE (NEGATIVE) U Marijuana (THC) Screen NEGATIVE (NEGATIVE) 07/15/17 22:00 WBC 5.48 10^3/uL 10^3/uL (3.80-9.50) RBC 4.92 10^6/uL 10^6/uL (4.18-5.33) Hgb 14.3 g/dL g/dL (12.6-16.3) Hct 42.2 % % (38.0-47.0) MCV 85.8 fL fL (81.5-99.8) MCH 29.1 pg pg (27.9-34.1) MCHC 33.9 g/dL g/dL (32.4-36.7) RDW 13.7 % % (11.5-15.2) Plt Count 267 10^3/uL 10^3/uL (150-400) MPV 12.0 fL H fL (8.7-11.7) Neut % (Auto) 54.7 % % (39.3-74.2) Lymph % (Auto) 32.5 % % (15.0-45.0) [place] % (Auto) 10.4 % % (4.5-13.0) Eos % (Auto) 1.6 % % (0.6-7.6) Baso % (Auto) 0.4 % % (0.3-1.7) Nucleat RBC Rel Count 0.0 % % (0.0-0.2) Absolute Neuts (auto) 3.00 10^3/uL 10^3/uL (1.70-6.50) Absolute Lymphs (auto) 1.78 10^3/uL 10^3/uL (1.00-3.00) Absolute Monos (auto) 0.57 10^3/uL 10^3/uL (0.30-0.80) Absolute Eos (auto) 0.09 10^3/uL 10^3/uL (0.03-0.40) Absolute Basos (auto) 0.02 10^3/uL 10^3/uL (0.02-0.10) Absolute Nucleated RBC 0.00 10^3/uL 10^3/uL (0-0.01) Immature Gran % 0.4 % % (0.0-1.1) Immature Gran # 0.02 10^3/uL 10^3/uL (0.00-0.10) PT INR APTT D-Dimer Sodium Potassium Chloride Carbon Dioxide Anion Gap BUN Creatinine Estimated GFR Glucose Calcium Troponin I NT-Pro-B Natriuret Pep TSH Urine Opiates Screen Urine Barbiturates Ur Phencyclidine Scrn Ur Amphetamine Screen U Benzodiazepines Scrn Urine Cocaine Screen U Marijuana (THC) Screen Medications Given: Discontinued Medications Sodium Chloride (Ns) 1,000 mls @ 0 mls/hr IV EDNOW ONE; Wide Open PRN Reason: Protocol Stop: 07/15/17 22:06 Last Admin: 07/15/17 22:11 Dose: 1,000 mls Ketorolac Tromethamine (Toradol) 15 mg IVP EDNOW ONE Stop: 07/15/17 22:58 Last Admin: 07/15/17 23:09 Dose: 15 mg Lorazepam (Ativan Injection) 1 mg IVP EDNOW ONE Stop: 07/15/17 22:08 Last Admin: 07/15/17 22:10 Dose: Not Given Midazolam HCl (Versed) 2 mg IVP EDNOW ONE Stop: 07/15/17 22:29 Last Admin: 07/15/17 22:30 Dose: 2 mg Departure - Departure Disposition: Home, Routine, Self-Care Clinical Impression: Shortness of breath Chest pain Qualifiers: Chest pain type: chest pain on breathing Qualified Code(s): R07.1 - Chest pain on breathing Condition: Good Instructions: Costochondritis (ED) Additional Instructions: I suspect the pain that your experiencing is from something called costochondritis or pleurisy. This can be caused by a viral infection. I recommend you take ibuprofen 400 mg every 6 hr as needed for pain. You can also use an ice pack. I would like for you to see your primary care doctor for follow-up in 1-2 days. Please return to the emergency department if your worse in any way.
--- NOTE | 2017-07-15 22:19 | CPEKG ---
Heart Rate: 88 RR Interval: 682 P-R Interval: 156 QRSD Interval: 84 QT Interval: 376 QTC Interval: 455 P [place]: 68 QRS [place]: 55 T Wave [place]: 38 EKG Severity - BORDERLINE ECG - EKG Impression: SINUS RHYTHM EKG Impression: PROBABLE LEFT ATRIAL ABNORMALITY EKG Impression: BORDERLINE R WAVE PROGRESSION, ANTERIOR LEADS Electronically Signed By: Olga Millard 16-Jul-2017 05:09:15
[2017-07-15 22:21] LABS: INR 1.05 (0.83-1.16); PROTIME(PATIENT) 13.9 SEC (12.0-15.0)
[2017-07-15] MEDS ORDERED: MIDAZOLAM 2 MG/2 ML VIAL IVP ONE (22:28)
[2017-07-15] MEDS ORDERED: KETOROLAC 15 MG/1 ML SDV IVP ONE (22:57)
[2017-07-16 00:16] VITALS: BP 132/78
== END 2017-07-16 00:32 | disposition home or self-care (01) ==
LOC: EDUNIT#
DX: R07.1 Chest pain on breathing (principal); R06.02 Shortness of breath; Z85.850 Personal history of malignant neoplasm of thyroid
CPT/HCPCS: 80305; 96374; J1885; J2060; J2250